=== PATIENT | female | born 1960 | race Caucasian/White ===

== ENCOUNTER → 2016-12-02 | Outpatient (CLI) | payer MEDICARE, OTHER ==
[~2016-12-02] MED LIST: ALBU17IN INH; BUPR150T5 PO; PERCOCET PO; ROPI1TAB PO; SPIR1CAP INH; SYMB16INH INH
== END ==
LOC: M ONCR 09:49
PROVIDERS: ATTEND Radiology Radiation Oncology
DX: C34.12 Malignant neoplasm of upper lobe, left bronchus or lung (principal); C79.31 Secondary malignant neoplasm of brain

== ENCOUNTER → 2017-03-25 | Outpatient (CLI) | payer MEDICARE, OTHER ==
--- NOTE | 2017-03-25 09:51 | REP ---
CT STUDY OF THE CHEST WITHOUT CONTRAST: HISTORY: COPD. Comparison chest CT studies are reviewed, the most recent of which is from August 04, 2016. The most remote prior chest CT study is from 2013. FINDINGS: The patient is status post radiation therapy and left upper lobectomy for malignancy. Subsequent CTs have shown gradual bronchiectasis and peribronchial fibrosis in the superior aspect of the remaining left lower lobe. Today's study again demonstrates these findings. There is some progressive volume loss yet again noted without aeration in the superior segment of the left lower lobe. The remainder of the left lower lobe is clear. The right lung remains essentially clear with some residual postinflammatory right mid lung scarring. There is some emphysematous changes particularly on the right. No pleural or pericardial effusion is seen. No extrathoracic mass or adenopathy is observed. No adrenal masses seen. There is an opaque gallstone in the neck of the gallbladder and there is mild fatty infiltration of the liver. IMPRESSION: Progressive volume loss in the superior segment of the left lower lobe with bronchiectasis again seen. Some linear fibrosis noted on the right. No acute disease. Cholelithiasis and mild fatty infiltration of the liver are noted incidentally. Signed by Gabe Grant MD 03/25/2017 04:38 P
== END ==
LOC: M RAD 08:39
PROVIDERS: ATTEND Internal Medicine Pulmonary Disease
DX: J44.9 Chronic obstructive pulmonary disease, unspecified (principal)

== ENCOUNTER → 2017-06-02 | Outpatient (CLI) | payer MEDICARE, OTHER ==
--- NOTE | 2017-06-03 09:07 | RADONC ---
RADIATION ONCOLOGY FOLLOWUP NOTE DATE: 06/02/2017 CHART NUMBER: [id number] DIAGNOSIS: Small cell lung carcinoma. STAGE: Limited. ECOG PERFORMANCE STATUS: 0. FOLLOWUP NOTE: Ms. Katz is a very pleasant 56-year-old white female with the diagnosis of a limited stage small cell lung carcinoma who is presenting to us today for routine followup visit almost 3 years post completion of prophylactic cranial irradiation and 3 years and 3 months post completion of thoracic consolidative radiation. The patient presents today reporting that she is doing quite well with no significant difficulties related to her radiation therapy or disease. She is having no neurological issues. She has no headaches, double vision or other problems. She does have some increase in her shortness of breath, especially during humid hot weather. She reports that it has been a little worse recently because of the humidity and heat. Other than that, she has no changes. REVIEW OF SYSTEMS: The patient's review of systems is positive for some increased shortness of breath during hot, humid days, but is otherwise noncontributory. Denies nausea, vomiting, fevers, chills, night sweats, diplopia, headaches, anxiety or depression, anorexia, weight loss, visual disturbances, chest pain, urinary or bowel difficulties, bone pain, or neurological problems. PHYSICAL EXAMINATION: The patient is a well-developed, well-nourished, 56-year-old in no acute distress. HEENT exam is normocephalic, atraumatic. Extraocular movements are intact. There is no palpable cervical, supraclavicular, infraclavicular, axillary, or inguinal lymphadenopathy present. Lungs are clear to auscultation and percussion. Heart has a regular rate and rhythm. Abdomen is benign with no hepatosplenomegaly, masses, or tenderness. Breast examination reveals no masses or discharge bilaterally. Skeletal examination reveals no tenderness to pressure or percussion of the bony skeleton. Extremities reveal no clubbing, cyanosis, or edema. Neurologic exam is grossly intact, as is the remainder of the physical examination. ASSESSMENT: The patient is clinically doing well at this point. She underwent a CT scan of the chest on 03/25/[address] Hernandez which showed no evidence of malignancy, but did show some progressive volume loss in the superior segment of the left lower lobe. I have scheduled the patient to see her again in 6 months for further followup. She will also continue to be followed by her other physicians as well. cc: MD Bushra Yates, ASHLYN Hernandez DO [facility]
== END ==
LOC: M ONCR 09:37
PROVIDERS: ATTEND Radiology Radiation Oncology
DX: C34.12 Malignant neoplasm of upper lobe, left bronchus or lung (principal); C79.31 Secondary malignant neoplasm of brain

== ENCOUNTER → 2017-10-07 | Outpatient (CLI) | payer MEDICARE, OTHER ==
[~2017-10-07] MED LIST changes: -ALBU17IN INH; -BUPR150T5 PO; +GASTROGRAFIN SOLUTION 30ML (Q9963) As Ordered; +ISOVUE-370 76% 100ML VIAL (Q9967) As Ordered; -PERCOCET PO; -ROPI1TAB PO; -SPIR1CAP INH; -SYMB16INH INH
== END ==
LOC: M RAD 08:29
DX: C34.90 Malignant neoplasm of unspecified part of unspecified bronchus or lung (principal); N28.1 Cyst of kidney, acquired; Z90.2 Acquired absence of lung [part of]
CPT/HCPCS: Q9963

== ENCOUNTER → 2017-10-17 | Outpatient (CLI) | payer MEDICARE, OTHER | LOC: M SLEEP 20:00 | DX: G47.33 Obstructive sleep apnea (adult) (pediatric) (principal); G47.61 Periodic limb movement disorder | CPT/HCPCS: 95811 ==

== ENCOUNTER → 2017-12-17 | Outpatient (CLI) | payer MEDICARE, OTHER | LOC: M ONCR 08:47 | DX: C34.12 Malignant neoplasm of upper lobe, left bronchus or lung (principal); C79.31 Secondary malignant neoplasm of brain | CPT/HCPCS: G0463 ==

== ENCOUNTER → 2017-12-23 | Outpatient (REF) | payer MEDICARE, OTHER | LOC: M LAB REF 12:59 | DX: G47.33 Obstructive sleep apnea (adult) (pediatric) (principal); E04.9 Nontoxic goiter, unspecified | CPT/HCPCS: 84443 ==

== ENCOUNTER → 2018-03-31 | Outpatient (REF) | payer MEDICARE, OTHER ==
[2018-03-31 13:45] LABS: FREE T4 1.08 NG/DL (0.76-1.46); RHEUMATOID FACTOR QUANT < 10.0 IU/ML (<15.0)
[2018-03-31 14:01] LABS: ERYTHROCYTE SEDIMENTATION RATE 44 mm/hr (0-30)
[2018-03-31 14:14] LABS: FOLATE 22.6 NG/ML; VITAMIN B12 LEVEL 311 PG/ML
[2018-04-05 10:44] LABS: DRVV SCREEN 43.1 SEC
[2018-04-06 00:15] LABS: ACETYLCHOLINE RCPTOR BINDING A < 0.03 nmol/L (0.00-0.24); ANTINUCLEAR ANTIBODIES DIRECT Negative (Negative); VITAMIN B1 LEVEL WHOLE BLOOD 128.5 nmol/L (66.5-200.0); VITAMIN B6,PYRIDOXAL PHOSPHATE 10.2 ug/L (2.0-32.8); VITAMIN E(ALPHA TOCOPHEROL) 12.7 mg/L (7.0-25.1); VITAMIN E(GAMMA TOCOPHEROL) 2.3 mg/L (0.5-5.5)
== END ==
LOC: M LABNEURO 11:36
DX: G56.00 Carpal tunnel syndrome, unspecified upper limb (principal); G62.9 Polyneuropathy, unspecified
CPT/HCPCS: 82746

== ENCOUNTER → 2018-04-13 | Outpatient (CLI) | payer MEDICARE, OTHER ==
[2018-04-13 09:47] LABS: BASO # 0.1 10^3/uL (0.0-0.2); BASO % 0.7 % (0.0-1.0); EOS # 0.2 10^3/uL (0.0-0.50); EOS % 2.4 % (0.0-3.0); HEMATOCRIT 39.5 % (36.0-47.0); HEMOGLOBIN 12.7 g/dl (12.0-15.5); IMMATURE GRANULOCYTE % 0.5 % (0-3.0); LYMPH # 1.6 10^3/uL (1.5-4.5); LYMPH % 21.8 % (24.0-44.0); MEAN CORPUSCULAR HEMOGLOBIN 30.1 pg (27.0-33.0); MEAN CORPUSCULAR HGB CONC 32.2 g/dl (32.0-36.5); MEAN CORPUSCULAR VOLUME 93.6 fl (80.0-96.0); MONO # 0.6 10^3/uL (0.0-0.8); MONO % 8.1 % (0.0-5.0); NEUTROPHILS % 66.5 % (36.0-66.0); PLATELET COUNT, AUTOMATED 284 10^3/uL (150-450); RED BLOOD COUNT 4.22 10^6/uL (4.00-5.40); RED CELL DISTRIBUTION WIDTH 14.1 % (11.5-14.5); WHITE BLOOD COUNT 7.4 10^3/uL (4.0-10.0)
[2018-04-13 10:19] LABS: ALBUMIN 3.8 GM/DL (3.2-5.2); ALBUMIN/GLOBULIN RATIO 1.06 (1.00-1.93); ALKALINE PHOSPHATASE 104 U/L (45-117); ALT/SGPT 28 U/L (12-78); ANION GAP 8 MEQ/L (8-16); AST/SGOT 24 U/L (7-37); BILIRUBIN,TOTAL 0.5 MG/DL (0.2-1.0); BLOOD UREA NITROGEN 7 MG/DL (7-18); CARBON DIOXIDE LEVEL 27 MEQ/L (21-32); CHLORIDE LEVEL 108 MEQ/L (98-107); CREATININE FOR GFR 0.67 MG/DL (0.55-1.30); GLOMERULAR FILTRATION RATE > 60.0 (>51); GLUCOSE, FASTING 102 MG/DL (70-100); POTASSIUM SERUM 3.9 MEQ/L (3.5-5.1); SODIUM LEVEL 143 MEQ/L (136-145); TOTAL PROTEIN 7.4 GM/DL (6.4-8.2)
== END ==
LOC: M RAD 09:15
DX: C34.90 Malignant neoplasm of unspecified part of unspecified bronchus or lung (principal); J84.10 Pulmonary fibrosis, unspecified; J93.9 Pneumothorax, unspecified; Z90.2 Acquired absence of lung [part of]; J98.11 Atelectasis
CPT/HCPCS: Q9963

== ENCOUNTER → 2018-06-29 | Outpatient (CLI) | payer MEDICARE, OTHER | LOC: M ONCR 08:32 | DX: C34.90 Malignant neoplasm of unspecified part of unspecified bronchus or lung (principal) ==

== ENCOUNTER → 2018-10-17 | Outpatient (CLI) | payer MEDICARE, OTHER ==
[~2018-10-17] MED LIST changes: +ALBU17IN INH; +BUPR150T5 PO; -GASTROGRAFIN SOLUTION 30ML (Q9963) As Ordered; -ISOVUE-370 76% 100ML VIAL (Q9967) As Ordered; +PERCOCET PO; +ROPI1TAB PO; +SPIR1CAP INH; +SYMB16INH INH
--- NOTE | 2018-10-17 10:09 | REP ---
CT of the chest without IV contrast: Comparison is 04/13/2018. The patient has a history of a right upper lobectomy. Postsurgical right upper lobectomy changes are again noted in the left hemithorax as previously. There is a chronic loculated pneumothorax within the fibrous changes in the apex of the left hemithorax, similar to the prior study. There postsurgical rib changes in the left hemithorax, unchanged. There are no acute infiltrates or pleural effusions. There are no lung masses or nodules. There is no mediastinal lymph node enlargement. In the absence of IV contrast the study is insensitive for hilar lymph node enlargement. There is no axillary lymph node enlargement. The thoracic aorta is unremarkable. Abdominal aorta is unremarkable except for occasional calcified atheroma in the arch. Cardiac size is normal. There is no pericardial effusion. The visualized upper abdominal contents are unremarkable except for a ring-shaped gallbladder calculus. The adrenals are unremarkable. Impression: No acute infiltrate or pleural effusion. No adenopathy. Chronic left upper lobectomy postsurgical changes. Chronic loculated pneumothorax in the left apex. Gallbladder calculus. Electronically Signed by Trenton Mcgrath MD 10/17/2018 10:00 A
== END ==
LOC: M RAD 08:57
PROVIDERS: ATTEND Internal Medicine Pulmonary Disease
DX: J44.1 Chronic obstructive pulmonary disease with (acute) exacerbation (principal); K80.00 Calculus of gallbladder with acute cholecystitis without obstruction; J93.9 Pneumothorax, unspecified; I70.0 Atherosclerosis of aorta; Z90.2 Acquired absence of lung [part of]

== ENCOUNTER → 2019-08-15 | Outpatient (CLI) | payer MEDICARE, OTHER ==
[~2019-08-15] MED LIST changes: +DULE200A; +VENTAER IN
--- NOTE | 2019-08-15 15:17 | REP ---
CT CHEST WITHOUT CONTRAST: HISTORY: Restaging lung cancer. Prior left upper lobectomy. Limited stage small cell lung carcinoma diagnosed in 2014 status post neoadjuvant chemotherapy and radiation therapy. Comparison chest CT study October 17, 2018 and April 13, 2018. CT FINDINGS: There is a small air collection in the apex of the left hemithorax again noted. This is a little larger than on the April 13, 2018 prior study. This post partial pneumonectomy left apical pleural cavity measured 4.9 x 2.2 cm in transverse dimension on axial CT images from October 26, 2018. Today's measurements are 6.2 x 3.2 cm. There is no evidence of fluid or soft tissue density within the air space. There is no evidence of progressive nodular thickening. There are a nonunited posterior rib fractures in the upper thorax on the left which involve rib numbers 5 and 6. There is some postoperative bony hypertrophy associated with the posterior 3rd rib. No bony destructive lesion is seen. The remaining left lower lobe is clear. The right lung shows linear fibrosis in the upper lobe, which it is unchanged from October 26, 2018 and April 25, 2018 prior studies. No pulmonary mass or new nodule is appreciated. There are mild emphysematous changes in the right upper lobe. There is some diffuse fatty infiltration of the liver. No adrenal lesion is seen. IMPRESSION: Gradually enlarging post partial pneumonectomy pleural air collection at the apex on the left. Post-treatment changes. Fibrosis right upper lobe. There is no CT evidence of recurrent disease. Electronically Signed by Gabe Grant MD 08/15/2019 05:19 P
== END ==
LOC: M RAD 11:10
PROVIDERS: ATTEND Internal Medicine Hematology & Oncology
DX: C34.90 Malignant neoplasm of unspecified part of unspecified bronchus or lung (principal); Z92.21 Personal history of antineoplastic chemotherapy; Z92.3 Personal history of irradiation

== ENCOUNTER → 2020-02-19 | Outpatient (CLI) | payer MEDICARE, OTHER ==
[~2020-02-19] MED LIST changes: -ROPI1TAB PO; +ROPI1TAB3 PO
--- NOTE | 2020-02-19 14:37 | REP ---
REASON: History of lung cancer. COMPARISON: Multiple, all reviewed. The latest 08/15/2019. The lack of intravenous contrast decreases the sensitivity of the examination. There is no significant change in the appearance of the mediastinum or pulmonary carol. The patient is status post left upper lobectomy with volume loss on the ipsilateral side. There is no significant change in the appearance of the imaged upper abdomen or imaged osseous structures. Evaluation of the lung han show chronic air bronchograms in the left upper lobe region status quo with a large air density in the pleural space status quo. No new abnormal modules, masses or opacities have developed. IMPRESSION: Stable exam. Electronically Signed by Kiel Yanez DO 02/19/2020 04:13 P
== END ==
LOC: M RAD 12:06
PROVIDERS: ATTEND Internal Medicine Hematology & Oncology
DX: Z08 Encounter for follow-up examination after completed treatment for malignant neoplasm (principal); Z85.118 Personal history of other malignant neoplasm of bronchus and lung

== ENCOUNTER → 2020-08-27 | Outpatient (CLI) | payer MEDICARE, OTHER ==
[~2020-08-27] MED LIST changes: +ADVI200T PO; +ECOT81TA5 PO; +ISOVUE-370 76% 100ML VIAL As Ordered ONE; +VITA100018 PO
--- NOTE | 2020-08-27 10:28 | REP ---
INDICATION: LUNG CA COMPARISON: None TECHNIQUE: Axial contrast enhanced images from the thoracic inlet to the upper abdomen with coronal and sagittal reformations using 75 ml Isovue 370 intravenous contrast material. This CT examination was performed using the following dose reduction techniques: Automated exposure control, adjustment of mA and/or kv according to the patient's size, and use of iterative reconstruction technique. FINDINGS: Patient is again noted to be status post left upper lobectomy with chronic postsurgical changes including postsurgical changes at the hilum with chronic bronchiectasis, scarring, and left apical postsurgical air collection. Findings are unchanged. Aerated lung han demonstrate chronic emphysematous changes with minimal chronic stable scarring. No new consolidation, significant nodule or mass lesion. No pleural effusion. Tracheobronchial tree is relatively patent. Mediastinum demonstrates stable atherosclerotic changes to the thoracic aorta and coronary arteries. No cardiomegaly or pericardial effusion. Osseous structures demonstrate left-sided postsurgical changes and no evidence for acute osseous abnormality. Limited upper abdomen demonstrates normal bilateral adrenal glands. IMPRESSION: Stable postsurgical changes involving the left hemithorax. No new acute mediastinal or pleuroparenchymal process appreciated. Stable chronic moderate emphysematous disease. <Electronically signed by Sandip Mena > 08/27/20 1024
== END ==
LOC: M RAD 09:42
PROVIDERS: ATTEND Internal Medicine Medical Oncology
DX: J43.9 Emphysema, unspecified (principal); Z85.118 Personal history of other malignant neoplasm of bronchus and lung; Z98.890 Other specified postprocedural states
CPT/HCPCS: 71260; Q9967

== ENCOUNTER → 2021-08-26 | Outpatient (CLI) | payer MEDICARE, OTHER ==
[~2021-08-26] MED LIST changes: +GASTROGRAFIN SOLUTION 30ML (Q9963) As Ordered ONE
--- NOTE | 2021-08-26 12:13 | REP ---
INDICATION: F/U LUNG CA COMPARISON: 08/27/2020, 04/13/2018 TECHNIQUE: Axial contrast enhanced images from the thoracic inlet to the upper abdomen with coronal and sagittal reformations using 100 ml Isovue 370 intravenous contrast material. This CT examination was performed using the following dose reduction techniques: Automated exposure control, adjustment of mA and/or kv according to the patient's size, and use of iterative reconstruction technique. FINDINGS: Stable postsurgical changes involving the left hemithorax along with stable chronic changes noted bilaterally and particularly along the basilar aspect of the right upper lobe and medial aspect of the right lower lobe. Chronic emphysematous changes are again noted as well and stable. No acute consolidation, new suspicious nodule or mass lesion identified. No effusion. No pneumothorax. Tracheobronchial tree is relatively patent. Small nonspecific normal sized mediastinal lymph nodes are again identified. Thoracic aorta, pulmonary vasculature and heart/pericardium are stable with age-related atherosclerotic changes again noted. Musculoskeletal structures unchanged. IMPRESSION: 1. Stable postsurgical and chronic changes as noted above. 2. No acute mediastinal or pleuroparenchymal process. 3. No evidence for recurrence or metastatic disease. <Electronically signed by Sandip Mena > 08/26/21 0816
--- NOTE | 2021-08-26 12:16 | REP ---
INDICATION: F/U LUNG CA. COMPARISON: 04/13/2018 TECHNIQUE: Axial contrast-enhanced images from the lung bases to the pubic symphysis using oral and 100 cc Isovue 370 intravenous contrast material. Coronal and sagittal reformations obtained along with delayed images of the abdomen. This CT examination was performed using the following dose reduction techniques: Automated exposure control, adjustment of mA and/or kv according to the patient's size, and the use of iterative reconstruction technique. FINDINGS: Liver demonstrates diffuse hepatosteatosis without focal lesion. Spleen, pancreas, bilateral adrenal glands and kidneys are normal/stable. Small incidental simple right renal cyst again noted. Cholelithiasis noted without acute cholecystitis. The enteric system including stomach, small, and large bowel appears normal. No evidence for obstruction or acute inflammatory process. Normal terminal ileum and appendix are identified in the right lower quadrant. Scattered diverticula without acute diverticulitis. Pelvis demonstrates normal bladder and age-appropriate uterus/adnexa. No ascites. No free air. No intraperitoneal or retroperitoneal adenopathy. Abdominal aorta and vasculature appear normal. Musculoskeletal structures demonstrate degenerative changes without acute osseous abnormality. IMPRESSION: 1. Hepatosteatosis. 2. No acute abdominopelvic pathology appreciated. Specifically, no evidence for metastatic disease. 3. Chronic stable changes noted above. <Electronically signed by Sandip Mena > 08/26/21 [id number]
== END ==
LOC: M RAD 10:18
PROVIDERS: ATTEND Internal Medicine Hematology & Oncology
DX: C34.12 Malignant neoplasm of upper lobe, left bronchus or lung (principal)
CPT/HCPCS: 71260; 74177; Q9963; Q9967

== ENCOUNTER → 2022-09-14 | Outpatient (CLI) | payer MEDICARE, OTHER ==
[~2022-09-14] MED LIST changes: +BUDE10.7; +BUPR-71 PO; -BUPR150T5 PO; -DULE200A; -GASTROGRAFIN SOLUTION 30ML (Q9963) As Ordered ONE; +GASTROGRAFIN SOLUTION 30ML As Ordered ONE; +METF500T13; +MOME13HF7; +ROPI0.5T3; +SIMV10TA21
== END ==
LOC: M RAD 09:43
PROVIDERS: ATTEND Internal Medicine Hematology & Oncology
DX: C34.12 Malignant neoplasm of upper lobe, left bronchus or lung (principal)
CPT/HCPCS: 71260; 74177; Q9963; Q9967

== ENCOUNTER → 2023-09-13 | Outpatient (CLI) | payer MEDICARE, OTHER ==
[~2023-09-13] MED LIST changes: -ROPI0.5T3; +ROPI0.5T33; -ROPI1TAB3 PO; +ROPI1TAB73 PO
== END ==
LOC: M RAD 08:23
PROVIDERS: ATTEND Internal Medicine Medical Oncology
DX: C34.90 Malignant neoplasm of unspecified part of unspecified bronchus or lung (principal)
CPT/HCPCS: 71260; 74177; Q9963; Q9967

== ENCOUNTER → 2024-09-18 | Outpatient (CLI) | payer MEDICARE, OTHER ==
[~2024-09-18] MED LIST changes: -GASTROGRAFIN SOLUTION 30ML As Ordered ONE
== END ==
LOC: M RAD 10:10
PROVIDERS: ATTEND Internal Medicine Medical Oncology
DX: C34.90 Malignant neoplasm of unspecified part of unspecified bronchus or lung (principal); K80.20 Calculus of gallbladder without cholecystitis without obstruction
CPT/HCPCS: 71260; 74177; Q9967

== ENCOUNTER → 2025-04-02 | Outpatient (CLI) | payer MEDICARE, OTHER ==
[~2025-04-02] MED LIST changes: +ATOR80TA59; +BRIL90TA; +INSU100I60; +IRON27TA2 PO; -ISOVUE-370 76% 100ML VIAL As Ordered ONE; +LISI5TAB11; +METF10004; +METO1TAB32
== END ==
LOC: M RAD 06:29
PROVIDERS: ATTEND Internal Medicine Cardiovascular Disease
DX: R09.89 Other specified symptoms and signs involving the circulatory and respiratory systems (principal); I71.40 Abdominal aortic aneurysm, without rupture, unspecified; I65.21 Occlusion and stenosis of right carotid artery

== ENCOUNTER 2025-05-04 23:53 | Emergency (ER) | payer MEDICARE, OTHER ==
[~2025-05-04] VITALS: Ht 154.9 cm; Wt 73.2 kg
[~2025-05-04 23:53] MED LIST changes: -ATOR80TA59; +ATOR80TA59 PO; -BRIL90TA; +BRIL90TA PO; -INSU100I60; +INSU100I60 INJ; -LISI5TAB11; +LISI5TAB11 PO; -METF10004; +METF10004 PO; -METO1TAB32; +METO1TAB32 PO
[2025-05-05 00:18] VITALS: TEMP 98.7
[2025-05-05 00:42] LABS: BASO # 0.0 10^3/uL (0.0-0.2); BASO % 0.2 % (0.0-1.0); EOS # 0.0 10^3/uL (0.0-0.5); EOS % 0.0 % (0.0-3.0); LYMPH # 1.0 10^3/uL (1.5-5.0); LYMPH % 6.2 % (24.0-44.0); MONO # 0.2 10^3/uL (0.0-0.8); MONO % 1.2 % (2.0-8.0); NEUTROPHILS # 14.9 10^3/uL (1.5-8.5); NEUTROPHILS % 91.7 % (36.0-66.0); PLATELET COUNT, AUTOMATED 390 10^3/uL (150-450)
[2025-05-05] MEDS: IPRATROPIUM 0.5 MG/ALBUTEROL 2.5 MG INH SOL UD 3 ML NEB ONE (00:52)
[2025-05-05 00:55] LABS: CK-MB VALUE MASS 2.9 NG/ML (<3.6)
[2025-05-05 01:01] LABS: CALCIUM LEVEL 9.4 MG/DL (8.3-10.6); CARBON DIOXIDE LEVEL 21 MMOL/L (20-31); CHLORIDE LEVEL 101 MMOL/L (98-107); CREATININE FOR GFR 0.57 MG/DL (0.55-1.30); GLOMERULAR FILTRATION RATE > 90.0 (>45); POTASSIUM SERUM 4.3 MMOL/L (3.5-5.1); SODIUM LEVEL 139 MMOL/L (136-145)
[2025-05-05 01:04] LABS: CPK CREATINE PHOSPHOKINASE 63 U/L (34-145); MB/CK RELATIVE INDEX 4.60 (< OR =4)
[2025-05-05] MEDS ORDERED: ISOVUE-370 76% 100 ML VIAL As Ordered ONE (01:54)
[2025-05-05] MEDS: LEVALBUTEROL 1.25 MG 0.5ML CONCENTRATE NEB NEB ONE ×3 (01:59→03:02)
[2025-05-05] MEDS: FUROSEMIDE 40 MG/4 ML VIAL IV ONE (02:04)
[2025-05-05 02:28] LABS: CK-MB VALUE MASS 5.8 NG/ML (<3.6); CPK CREATINE PHOSPHOKINASE 74.0 U/L (34-145); MB/CK RELATIVE INDEX 7.83 (< OR =4)
[2025-05-05] MEDS ORDERED: HEPARIN SOD 5000 UNITS/ML 1 ML VIAL/SYRINGE IV PRN (02:45)
[2025-05-05] MEDS ORDERED: LEVALBUTEROL 1.25 MG 0.5ML CONCENTRATE NEB NEB ONE ×2 (03:05→08:15)
[2025-05-05 03:12] LABS: PLATELET COUNT, AUTOMATED 416 10^3/uL (150-450)
[2025-05-05 03:55] VITALS: BP 130/69
[2025-05-05] MEDS: METOPROLOL 5 MG/5 ML VIAL IV SCH (03:55)
[2025-05-05] MEDS: HumuLIN R (REGULAR) INSULIN (NovoLIN R) **100 U/ML** PER UNIT IV ONE (03:56)
[2025-05-05] MEDS: HEPARIN DRIP 25,000 UNITS in IV 1 EA IV SCH (04:09)
[2025-05-05 04:15] VITALS: BP 130/56
[2025-05-05 04:23] VITALS: O2SAT 93
[2025-05-05] MEDS ORDERED: ROPI0.5T33 PO (05:49)
[2025-05-05] MEDS ORDERED: HOME MED LIST COMPLETE! XX SCH (06:05)
== END 2025-05-05 04:38 | disposition short-term general hospital (02) ==
LOC: M ED 23:53
DX: I21.4 Non-ST elevation (NSTEMI) myocardial infarction (principal); J96.00 Acute respiratory failure, unspecified whether with hypoxia or hypercapnia; E11.65 Type 2 diabetes mellitus with hyperglycemia; R00.0 Tachycardia, unspecified; I25.2 Old myocardial infarction; I45.81 Long QT syndrome; E78.5 Hyperlipidemia, unspecified; J44.9 Chronic obstructive pulmonary disease, unspecified; C34.90 Malignant neoplasm of unspecified part of unspecified bronchus or lung; Z91.040 Latex allergy status; Z86.79 Personal history of other diseases of the circulatory system; Z88.5 Allergy status to narcotic agent; Z79.82 Long term (current) use of aspirin; Z79.02 Long term (current) use of antithrombotics/antiplatelets; Z79.4 Long term (current) use of insulin; Z79.899 Other long term (current) drug therapy
CPT/HCPCS: 71045; 71275; 80048; 82550; 82553; 83880; 84484; 85025; 85027; 85730; 87486; 87581; 87633; 87798; 93005; 93041; 94640; 94660; 94760; 96374; 96375; 99285; J0616; J1815; J1938; Q9967

== ENCOUNTER → 2025-05-14 | Outpatient (CLI) | payer MEDICARE, OTHER ==
[~2025-05-14] MED LIST changes: +ROPI0.5T33 PO
== END ==
LOC: M PLAIMG 09:35
PROVIDERS: ATTEND Internal Medicine Cardiovascular Disease
DX: R06.02 Shortness of breath (principal); G47.33 Obstructive sleep apnea (adult) (pediatric)